=== PATIENT | female | born 1945 | race Caucasian/White ===

== ENCOUNTER 2022-06-04 14:48 | Emergency (ER) | payer OTHER ==
[~2022-06-04] VITALS: Ht 157.5 cm; Wt 62.0 kg
[2022-06-04] MEDS ORDERED: LIDOCAINE 5% PATCH TOP SCH (18:30)
[2022-06-04] MEDS ORDERED: FLUORESCEIN SODIUM 1MG/STRIP RIGHTEYE ONE (18:30)
[2022-06-04] MEDS ORDERED: TETRACAINE 0.5% OPHTH DROPS 4ML RIGHTEYE ONE (18:30)
[2022-06-04] MEDS ORDERED: ACETAMINOPHEN 325MG TABLET PO NR (18:45)
[2022-06-04] MEDS ORDERED: LIDO700A15 TP (20:02)
[2022-06-04] MEDS ORDERED: ACET-2708 MT (20:02)
[2022-06-04 20:16] VITALS: BP 150/72
== END 2022-06-04 20:18 | disposition home or self-care (01) ==
LOC: ER 14:48
DX: S20.211A Contusion of right front wall of thorax, initial encounter (principal); H11.31 Conjunctival hemorrhage, right eye; I10 Essential (primary) hypertension; V43.52XA Car driver injured in collision with other type car in traffic accident, initial encounter; Y93.89 Activity, other specified; Y92.410 Unspecified street and highway as the place of occurrence of the external cause
CPT/HCPCS: 71101; 93005; 99283